=== PATIENT | male | born 1990 ===

== ENCOUNTER → 2018-02-24 | Outpatient (CLI) | payer OTHER ==
--- NOTE | 2018-02-24 14:09 | DIAGNOSTIC IMAGING REPORT ---
LEFT ANKLE 3 VIEWS HISTORY: Left ankle pain. Fracture. COMPARISON: None. FINDINGS: There is an oblique fracture within the distal left fibula. This is essentially nondisplaced. No dislocation. Mild soft tissue swelling within the left ankle. No radiopaque foreign bodies. IMPRESSION: An oblique fracture within the distal left fibula which is essentially nondisplaced. Electronically signed by: Emil Sheth M.D. 02/24/2018 2:07 PM Dictated Date/Time: 02/24/2018 2:06 PM
== END | disposition home or self-care (01) ==
LOC: C.RDSM 11:15
PROVIDERS: ATTEND Family Medicine
DX: S82.435A Nondisplaced oblique fracture of shaft of left fibula, initial encounter for closed fracture (principal); X58.XXXA Exposure to other specified factors, initial encounter

== ENCOUNTER → 2018-03-16 | Outpatient (CLI) | payer OTHER ==
--- NOTE | 2018-03-16 13:15 | DIAGNOSTIC IMAGING REPORT ---
L ANKLE MIN 3 VIEWS CLINICAL HISTORY: LEFT ANKLE PAIN COMPARISON: 02/24/2018 DISCUSSION: There is no change in the alignment of the nondisplaced oblique fracture of the distal fibula. The ankle mortise remains intact on these nonstress views. IMPRESSION: No change in the alignment of the oblique fracture of the distal fibula which remains essentially nondisplaced Electronically signed by: Db Ivy M.D. 03/16/2018 1:14 PM Dictated Date/Time: 03/16/2018 1:12 PM
== END | disposition home or self-care (01) ==
LOC: C.RDSM 13:30
PROVIDERS: ATTEND Family Medicine
DX: S82.832D Other fracture of upper and lower end of left fibula, subsequent encounter for closed fracture with routine healing (principal); X58.XXXD Exposure to other specified factors, subsequent encounter; Z91.048 Other nonmedicinal substance allergy status